=== PATIENT | female | born 1945 | race Caucasian/White ===

== ENCOUNTER 2016-11-14 08:05 | Day surgery (SDC) | payer MEDICARE, OTHER ==
[~2016-11-14 08:05] MED LIST: Lactated Ringers 1,000 ML IV SCH
[2016-11-14] MEDS ORDERED: Propofol 200 MG/20 ML SDV ONE (09:12)
[2016-11-14] MEDS ORDERED: fentaNYL 100 MCG/2 ML SDV ONE (09:12)
[2016-11-14 11:06] VITALS: BP 109/64
--- NOTE | 2016-11-14 16:03 | OR ---
PREOPERATIVE DIAGNOSIS: Screening colonoscopy. POSTOPERATIVE DIAGNOSIS: Normal colonoscopic exam. PROCEDURE PROPOSED: Total flexible colonoscopy. PROCEDURE DONE: Total flexible colonoscopy. INDICATION: This is a 70-year-old female who comes in for her second colonoscopic exam. She had one done 10 years ago. She denies any symptomatology, and she has a negative family history for colon cancer. TECHNIQUE: The patient was brought to the endoscopy suite, placed in left lower decubitus position. She was sedated per BUDGET ANALYST with propofol. The flexible video colonoscope was then passed transanally and under visualization advanced to the cecum. Examination revealed a normal ascending, transverse, descending, sigmoid, and rectal colon. There was no evidence of any polyps, diverticulosis, colitis, or any other abnormalities. The scope was then withdrawn. The patient tolerated the procedure well. IMPRESSION: Essentially normal colonoscopic exam. PLAN: The patient is reassured. I felt that she could wait 10 years before she needs a repeat exam, and that likely will be her last one. SCM: 11/14/2016 10:24:17 MODL: 11/14/2016 14:55:39 /[id number]
== END 2016-11-14 11:44 | disposition home or self-care (01) ==
LOC: VM.SDS 08:05
PROVIDERS: ATTEND Surgery
DX: Z12.11 Encounter for screening for malignant neoplasm of colon (principal)
CPT/HCPCS: G0121; J2704; J3010; J7120; 00810

== ENCOUNTER 2017-04-03 13:40 | Emergency (ER) | payer MEDICARE, OTHER ==
[2017-04-03] MEDS ORDERED: Lidocaine 1% with EPINEPHrine 1:100,000 20 ML MDV INFILT PRN (13:52)
[2017-04-03] MEDS ORDERED: Diphtheria,Pertussis(Acell),Tetanus Vaccine 0.5 ML Syringe IM ONE (13:56)
--- NOTE | 2017-04-03 14:40 | EDM.PDOC ---
ED HPI GENERAL MEDICAL PROBLEM - General Chief Complaint: Laceration Stated Complaint: CUT ON RIGHT LEG Time Seen by Provider: 04/03/17 13:51 Source of Information: Reports: Patient History Limitations: Reports: No Limitations - History of Present Illness INITIAL COMMENTS - FREE TEXT/NARRATIVE: Patient was helping her move a metal desk when it fell and hit her in the inside of her upper right thigh. The desk cut her and caused a bruise. She is on aspirin 81 mg daily. She thinks her last tetnas shot was more than 7 years ago. Onset: Today Onset Date: 04/03/17 Onset Time: 02:00 Location: Reports: Lower Extremity, Right Quality: Reports: Ache, Dull Severity: Mild Improves with: Reports: Cold Therapy Worsens with: Reports: Movement Context: Reports: Activity Associated Symptoms: Reports: No Other Symptoms Treatments COOK SHORT ORDER: Reports: Aspirin - Related Data Allergies Allergy/AdvReac Type Severity Reaction Status Date / Time codeine Allergy Abdominal Verified 04/03/17 13:51 Pain Penicillins Allergy Rash Verified 04/03/17 13:51 tramadol Allergy Itching Verified 04/03/17 13:51 Home Meds: Home Meds Aspirin [Halfprin] 81 mg PO BRK 01/27/15 [History] Calcium Carbonate/Vitamin D3 [Calcium 600 + D Tablet] 1 each PO DAILY 01/27/15 [ History] Cholecalciferol (Vitamin D3) [Vitamin D-3] 2,000 unit PO DAILY 01/27/15 [History ] Fish Oil/[place]-3 Fatty Acids [Fish Oil] 1 each PO DAILY 01/27/15 [History] Ibuprofen [Advil] 800 mg PO TID PRN 01/27/15 [History] Levothyroxine [Synthroid] 88 mcg PO ACBREAKFAST 01/27/15 [History] Multivitamin [Multi-Vitamin Daily] 1 each PO DAILY 01/27/15 [History] Vit A/Vit C/Vit E/Zinc/Copper [Preservision] 1 each PO DAILY 01/27/15 [History] Clindamycin HCl 4 tab PO ASDIRECTED 11/11/16 [History] Cranberry Ext/C/L. Sporogenes [Azo Cranberry] 1 tab PO DAILY 11/11/16 [History] Gluc HCl/Csa/Oleg Hy/Hyalur Ac [Glucosamine Chondroitin] 1 tab PO DAILY [History] Losartan [Cozaar] 25 mg PO DAILY 11/11/16 [History] Pramipexole Di-HCl [Mirapex] 0.125 mg PO BEDTIME 11/11/16 [History] Simvastatin [Zocor] 40 mg PO BEDTIME 11/11/16 [History] Past Medical History HEENT History: Reports: Cataract, Macular Degeneration, Other (See Below) Other HEENT History: TINNITUS Cardiovascular History: Reports: High Cholesterol, Hypertension Respiratory History: Reports: None Musculoskeletal History: Reports: Arthritis Other Musculoskeletal History: RLS Neurological History: Reports: None Psychiatric History: Reports: None Endocrine/Metabolic History: Reports: Hypothyroidism, Osteopenia Hematologic History: Reports: None Immunologic History: Reports: None Oncologic (Cancer) History: Reports: Other (See Below) Other Oncologic History: SKIN Dermatologic History: Reports: None - Past Surgical History Head Surgeries/Procedures: Reports: None HEENT Surgical History: Reports: Eye Surgery GI Surgical History: Reports: Colonoscopy Female Surgical History: Reports: Hysterectomy, Tubal Ligation Endocrine Surgical History: Reports: None Musculoskeletal Surgical History: Reports: Knee Replacement, Other (See Below) Social & Family History - Tobacco Use Smoking Status *Q: Unknown Ever Smoked - Recreational Drug Use Recreational Drug Use: No Drug Use in Last 12 Months: No ED ROS GENERAL - Review of Systems Review Of Systems: ROS reveals no pertinent complaints other than HPI. ED EXAM, SKIN/RASH Exam: See Below Exam Limited By: No Limitations General Appearance: Alert, WD/WN, No Apparent Distress Head: Atraumatic, Normocephalic Respiratory/Chest: No Respiratory Distress, Lungs Clear, Normal Breath Sounds, No Accessory Muscle Use, Chest Non-Tender Cardiovascular: Normal Peripheral Pulses, Regular Rate, Rhythm, No Edema, No Gallop, No JVD, No Murmur, No Rub Peripheral Pulses: 2+: Radial (L), Radial (R), Dorsalis Pedis (L), Dorsalis Pedis (R) GI/Abdominal: Normal Bowel Sounds, Soft, Non-Tender, No Organomegaly, No Distention, No Abnormal Bruit, No Mass Back Exam: Normal Inspection, Full Range of Motion, NT Extremities: Normal Inspection, Normal Range of Motion, Non-Tender, No Pedal Edema, Normal Capillary Refill Neurological: Alert, Oriented, CN II-XII Intact, Normal Cognition, Normal Gait, No Motor/Sensory Deficits Psychiatric: Normal Affect, Normal Mood Skin: Warm, Dry, No Rash, Ecchymosis, Wound/Incision (3cm by 4cm V shaped laceration with the vertex pointed toward the patient's groin) Lymphatic: No Adenopathy ED SKIN PROCEDURES - Laceration/Wound Repair Right Upper Medial Thigh Lac/Wound length In cm: 7 (3x4 cm inverted v shape) Appearance: Clean Distal NVT: Neuro & Vascular Intact Anesthetic Type: Local Local Anesthesia - Lidocaine (Xylocaine): 1% with EPI Local Anesthetic Volume: Other (12 mL) Skin Prep: Providone-Iodine (Betadine) Saline Irrigation (cc's): 80 Exploration/Debridement/Repair: Wound Explored, In a Bloodless Field, Explored to Base, No Foreign Material Found Closed with: Sutures Suture Size: 4-0 # of Sutures: 13 Course - Vital Signs Last Recorded V/S: Last Vital Signs Temp 36.6 C 04/03/17 13:40 Pulse 89 04/03/17 13:40 Resp 18 04/03/17 13:40 BP 181/109 H 04/03/17 13:40 Pulse Ox 97 04/03/17 13:40 - Orders/Labs/Meds Orders: Active Orders 24 hr Category Date Time Status Vaccines to be Administered [RC] PER UNIT ROUTINE Care 04/03/17 13:56 Ordered Lidocaine 1% w/EPINEPHrine [Xylocaine 1% with Med 04/03/17 13:52 Ordered EPINEPHrine 1:100,000] 20 ml INFILT ONETIME PRN Medication Orders Lidocaine/Epinephrine (Xylocaine 1% With Epinephrine 1:100,000) 20 ml INFILT ONETIME PRN PRN Reason: Bleeding Last Admin: 04/03/17 14:02 Dose: 20 ml Meds: Medications Generic Name Dose Route Start Last Admin Trade Name Freq PRN Reason Stop Dose Admin Lidocaine/Epinephrine 20 ml 04/03/17 13:52 04/03/17 14:02 Xylocaine 1% With Epinephrine 1:100,000 INFILT 20 ml ONETIME PRN Administration Bleeding Discontinued Medications Generic Name Dose Route Start Last Admin Trade Name Freq PRN Reason Stop Dose Admin Diphtheria/Tetanus/Acell Pertussis 0.5 ml 04/03/17 13:56 Adacel IM 04/03/17 13:57 .ONCE ONE Departure - Departure Time of Disposition: 02:50 Disposition: Home, Self-Care 01 Condition: Good Clinical Impression: Laceration of right thigh without foreign body Qualifiers: Encounter type: initial encounter Qualified Code(s): S71.111A - Laceration without foreign body, right thigh, initial encounter - Discharge Information Instructions: Laceration Care, Adult, [id number] Additional Instructions: sutures out in 14 days follow written laceration repair instructions - My Orders Last 24 Hours: My Active Orders 04/03/17 13:52 Lidocaine 1% w/EPINEPHrine [Xylocaine 1% with EPINEPHrine 1:100,000] 20 ml INFILT ONETIME PRN 04/03/17 13:56 Vaccines to be Administered [RC] PER UNIT ROUTINE - Assessment/Plan Last 24 Hours: My Active Orders 04/03/17 13:52 Lidocaine 1% w/EPINEPHrine [Xylocaine 1% with EPINEPHrine 1:100,000] 20 ml INFILT ONETIME PRN 04/03/17 13:56 Vaccines to be Administered [RC] PER UNIT ROUTINE Assessment:: Laceration right thigh Plan: Sutures out in 14 days. Keep wound clean and dry for the next 48 hours. You may then wash it lightly in the shower with soap and water. Take antibiotics until they are gone. Follow up for any sign of infection as listed in the discharge instructions.
[2017-04-03 15:07] VITALS: BP 128/77
== END 2017-04-03 14:56 | disposition home or self-care (01) ==
LOC: VM.ED 13:40
DX: S71.111A Laceration without foreign body, right thigh, initial encounter (principal); I10 Essential (primary) hypertension; E03.9 Hypothyroidism, unspecified; M19.90 Unspecified osteoarthritis, unspecified site; E78.00 Pure hypercholesterolemia, unspecified; Z88.5 Allergy status to narcotic agent; Z88.0 Allergy status to penicillin; Z88.6 Allergy status to analgesic agent; Z79.82 Long term (current) use of aspirin; Z79.899 Other long term (current) drug therapy; Z90.710 Acquired absence of both cervix and uterus; Z23 Encounter for immunization; W18.31XA Fall on same level due to stepping on an object, initial encounter
CPT/HCPCS: 12002; 12013; 90715; 99283; 99283-GF-25

== ENCOUNTER 2020-01-31 14:19 | Emergency (ER) | payer MEDICARE, OTHER ==
[2020-01-31] MEDS ORDERED: HYDROmorphone 1 MG/ML Syringe SUBCUT ONE (14:33)
[2020-01-31 14:34] VITALS: BP 155/71; PULSE 74
--- NOTE | 2020-01-31 15:06 | EDM.PDOC ---
ED HPI GENERAL MEDICAL PROBLEM - General Chief Complaint: Upper Extremity Injury/Pain Stated Complaint: RIGHT UPPER ARM INJURY Time Seen by Provider: 01/31/20 14:25 Source of Information: Reports: Patient History Limitations: Reports: No Limitations - History of Present Illness INITIAL COMMENTS - FREE TEXT/NARRATIVE: Pt. was sent to ER from clinic. Pt. states that she fell on sidewalk while walking downtown. Pt. states that she tripped. Denies striking her head. No LOC. Denies any neck pain. Pt. states that she is having pain in her R upper arm. No discomfort to the shoulder or elbow. ROM is within normal limits. Denies any injury elsewhere. No chest pain, palpitations, shortness of breath, or lightheadedness prior to or after the fall. Onset: Today Onset Date: 01/31/20 Location: Reports: Upper Extremity, Right Quality: Reports: Sharp, Throbbing Improves with: Reports: Rest Worsens with: Reports: Movement Right Upper Arm Pain Score (Numeric/FACES): 8 - Related Data Allergies Allergy/AdvReac Type Severity Reaction Status Date / Time codeine Allergy Abdominal Verified 01/31/20 14:36 Pain Penicillins Allergy Rash Verified 01/31/20 14:36 tramadol Allergy Itching Verified 01/31/20 14:36 Home Meds: Home Meds Aspirin [Halfprin] 81 mg PO BRK 01/27/15 [History] Calcium Carbonate/Vitamin D3 [Calcium 600 + D Tablet] 1 each PO DAILY 01/27/15 [History] Cholecalciferol (Vitamin D3) [Vitamin D-3] 2,000 unit PO DAILY 01/27/15 [History] Ibuprofen [Advil] 800 mg PO TID PRN 01/27/15 [History] Levothyroxine [Synthroid] 88 mcg PO ACBREAKFAST 01/27/15 [History] Vit A/Vit C/Vit E/Zinc/Copper [Preservision] 1 each PO DAILY 01/27/15 [History] Cranberry Ext/C/L. Sporogenes [Azo Cranberry] 1 tab PO DAILY 11/11/16 [History] Glucosam/Chond/Collagen/Hyalur [Glucosamine Chondroitin] 1 tab PO DAILY 11/11/16 [History] Losartan [Cozaar] 25 mg PO DAILY 11/11/16 [History] Simvastatin [Zocor] 40 mg PO BEDTIME 11/11/16 [History] Past Medical History HEENT History: Reports: Cataract, Macular Degeneration, Other (See Below) Other HEENT History: TINNITUS Cardiovascular History: Reports: High Cholesterol, Hypertension Respiratory History: Reports: None Musculoskeletal History: Reports: Arthritis Other Musculoskeletal History: RLS Neurological History: Reports: None Psychiatric History: Reports: None Endocrine/Metabolic History: Reports: Hypothyroidism, Osteopenia Hematologic History: Reports: None Immunologic History: Reports: None Oncologic (Cancer) History: Reports: Other (See Below) Other Oncologic History: SKIN Dermatologic History: Reports: None - Past Surgical History Head Surgeries/Procedures: Reports: None HEENT Surgical History: Reports: Eye Surgery GI Surgical History: Reports: Colonoscopy Female Surgical History: Reports: Hysterectomy, Tubal Ligation Endocrine Surgical History: Reports: None Musculoskeletal Surgical History: Reports: Knee Replacement Social & Family History - Tobacco Use Smoking Status *Q: Never Smoker Review of Systems - Review of Systems Review Of Systems: Comprehensive ROS is negative, except as noted in HPI. Musculoskeletal: Reports: Arm Pain ED EXAM, GENERAL - Physical Exam Exam: See Below Exam Limited By: No Limitations General Appearance: Alert, WD/WN, No Apparent Distress Extremities: Other (Tenderness to mid upper arm. CMS intact. No crepitus. No deformity. ROM slightly decreased in shoulder due to pain, but she is able to move the shoulder.) Course - Vital Signs Last Recorded V/S: Last Vital Signs Temp 37.3 C 01/31/20 14:25 Pulse 74 01/31/20 14:25 Resp 18 01/31/20 14:25 BP 155/71 H 01/31/20 14:25 Pulse Ox 97 01/31/20 14:25 - Orders/Labs/Meds Orders: Active Orders 24 hr Category Date Time Status Humerus Rt [CR] Stat Exams 01/31/20 14:37 Ordered Meds: Medications Discontinued Medications Generic Name Dose Route Start Last Admin Trade Name Freq PRN Reason Stop Dose Admin Hydromorphone HCl 0.5 mg 01/31/20 14:33 01/31/20 14:43 Dilaudid SUBCUT 01/31/20 14:34 0.5 mg ONETIME ONE Administration Departure - Departure Time of Disposition: 16:00 Disposition: Home, Self-Care 01 Clinical Impression: Contusion of arm, right - Discharge Information Forms: ED Department Discharge Sepsis Event Note (ED) - Evaluation Sepsis Screening Result: No Definite Risk - Focused Exam Vital Signs: Vital Signs Temp Pulse Resp BP Pulse Ox 01/31/20 14:25 37.3 C 74 18 155/71 H 97 - Problem List Review Problem List Initiated/Reviewed/Updated: Yes - My Orders Last 24 Hours: My Active Orders 01/31/20 14:37 Humerus Rt [CR] Stat - Assessment/Plan Last 24 Hours: My Active Orders 01/31/20 14:37 Humerus Rt [CR] Stat Plan: Pt. was discharged. No fracture noted on radiographs. Pt. was advised to ice the upper arm for 10-15 min every 1-2 hours. Tylenol and ibuprofen as needed for discomfort. Follow-up in clinic in 7-10 days if not gradually improving.
--- NOTE | 2020-01-31 15:52 | CR ---
[id number] RAD/RAD Humerus Right 2V EXAM: RAD Humerus Right 2V CLINICAL DATA: TRAUMA COMPARISON: NO PREVIOUS SIMILAR EXAM IS AVAILABLE. FINDINGS: No fracture or dislocation is seen. There is no radiopaque foreign body in the soft tissues. There is no air in the soft tissues. There is no cortical thickening or periosteal reaction either. IMPRESSION: NEGATIVE PLAIN FILM EXAM. Anupam Mccarthy MD 01/31/20 0648 Thank you for allowing us to participate in the care of your patient.
== END 2020-01-31 16:01 | disposition home or self-care (01) ==
LOC: VM.ED 14:19
DX: S40.021A Contusion of right upper arm, initial encounter (principal); E78.00 Pure hypercholesterolemia, unspecified; I10 Essential (primary) hypertension; M19.90 Unspecified osteoarthritis, unspecified site; E03.9 Hypothyroidism, unspecified; Z79.82 Long term (current) use of aspirin; Z79.899 Other long term (current) drug therapy; W01.0XXA Fall on same level from slipping, tripping and stumbling without subsequent striking against object, initial encounter; Z88.5 Allergy status to narcotic agent; Z88.0 Allergy status to penicillin
CPT/HCPCS: 73060-RT; 96372; 99283-25; 99283-GF; J1170

== ENCOUNTER 2020-08-04 11:13 | Emergency (ER) | payer MEDICARE, OTHER ==
[2020-08-04 11:20] VITALS: BP 150/86; PULSE 67
--- NOTE | 2020-08-04 16:36 | EDM.PDOC ---
ED HPI GENERAL MEDICAL PROBLEM - General Chief Complaint: Genitourinary Problem Time Seen by Provider: 08/04/20 11:20 Source of Information: Reports: Patient, RN History Limitations: Reports: No Limitations - History of Present Illness INITIAL COMMENTS - FREE TEXT/NARRATIVE: Pt. presents to ER with complaints of urinary frequency and dysuria since yesterday. Denies any fever or chills. No flank pain. No nausea, vomiting, or diarrhea. Pt. denies any chest pain or shortness of breath. She states that she would frequently get UTIs in her youth, but states that she hasn't had a UTI in about a year. Onset Date: 08/03/20 Location: Reports: Pelvis Quality: Reports: Burning Associated Symptoms: Denies: Confusion, Chest Pain, Cough, cough w sputum, Diaphoresis, Fever/Chills, Headaches, Loss of Appetite, Malaise, Nausea/Vomiting, Rash, Seizure, Shortness of Breath, Syncope, Weakness Perineal Area Pain Score (Numeric/FACES): 1 - Related Data Allergies Allergy/AdvReac Type Severity Reaction Status Date / Time codeine Allergy Abdominal Verified 08/04/20 11:22 Pain Penicillins Allergy Rash Verified 08/04/20 11:22 tramadol Allergy Itching Verified 08/04/20 11:22 Home Meds: Home Meds Aspirin [Halfprin] 81 mg PO BRK 01/27/15 [History] Calcium Carbonate/Vitamin D3 [Calcium 600 + D Tablet] 1 each PO DAILY 01/27/15 [History] Cholecalciferol (Vitamin D3) [Vitamin D-3] 2,000 unit PO DAILY 01/27/15 [History] Ibuprofen [Advil] 800 mg PO TID PRN 01/27/15 [History] Levothyroxine [Synthroid] 88 mcg PO ACBREAKFAST 01/27/15 [History] Vit A/Vit C/Vit E/Zinc/Copper [Preservision] 1 each PO DAILY 01/27/15 [History] Cranberry Ext/C/L. Sporogenes [Azo Cranberry] 1 tab PO DAILY 11/11/16 [History] Glucosam/Chond/Collagen/Hyalur [Glucosamine Chondroitin] 1 tab PO DAILY 11/11/16 [History] Losartan [Cozaar] 25 mg PO DAILY 11/11/16 [History] Simvastatin [Zocor] 40 mg PO BEDTIME 11/11/16 [History] Past Medical History HEENT History: Reports: Cataract, Macular Degeneration, Other (See Below) Other HEENT History: TINNITUS Cardiovascular History: Reports: High Cholesterol, Hypertension Respiratory History: Reports: None Musculoskeletal History: Reports: Arthritis Other Musculoskeletal History: RLS Neurological History: Reports: None Psychiatric History: Reports: None Endocrine/Metabolic History: Reports: Hypothyroidism, Osteopenia Hematologic History: Reports: None Immunologic History: Reports: None Oncologic (Cancer) History: Reports: Other (See Below) Other Oncologic History: SKIN Dermatologic History: Reports: None - Past Surgical History Head Surgeries/Procedures: Reports: None HEENT Surgical History: Reports: Eye Surgery Cardiovascular Surgical History: Reports: None GI Surgical History: Reports: Colonoscopy Female Surgical History: Reports: Hysterectomy, Tubal Ligation Endocrine Surgical History: Reports: None Musculoskeletal Surgical History: Reports: Knee Replacement Other Musculoskeletal Surgeries/Procedures:: TRIGGER FINGER RELEASE Oncologic Surgical History: Reports: None Social & Family History - Tobacco Use Tobacco Use Status *Q: Unknown Ever Used Tobacco ED ROS GENERAL - Review of Systems Review Of Systems: See Below Constitutional: Reports: No Symptoms HEENT: Reports: No Symptoms Respiratory: Reports: No Symptoms Cardiovascular: Reports: No Symptoms Endocrine: Reports: No Symptoms GI/Abdominal: Reports: No Symptoms : Reports: Dysuria, Frequency Musculoskeletal: Reports: No Symptoms Skin: Reports: No Symptoms Neurological: Reports: No Symptoms Psychiatric: Reports: No Symptoms Hematologic/Lymphatic: Reports: No Symptoms Immunologic: Reports: No Symptoms ED EXAM, GENERAL - Physical Exam Exam: See Below Exam Limited By: No Limitations General Appearance: Alert, WD/WN, No Apparent Distress Neck: Normal Inspection Respiratory/Chest: No Respiratory Distress, Lungs Clear, Normal Breath Sounds, No Accessory Muscle Use, Chest Non-Tender Cardiovascular: Normal Peripheral Pulses, Regular Rate, Rhythm, No Edema, No JVD, No Murmur Peripheral Pulses: 4+: Radial (R) GI/Abdominal: Soft, Non-Tender, No Distention, No Mass (Female) Exam: Deferred Rectal (Female) Exam: Deferred Neurological: Alert, Oriented, CN II-XII Intact, Normal Cognition, Normal Gait, Normal Reflexes, No Motor/Sensory Deficits Course - Vital Signs Last Recorded V/S: Last Vital Signs Temp 36.4 C 08/04/20 11:20 Pulse 67 08/04/20 11:20 Resp 16 08/04/20 11:20 BP 150/86 H 08/04/20 11:20 Pulse Ox 98 08/04/20 11:20 - Orders/Labs/Meds Labs: Laboratory Tests 08/04/20 Range/Units 11:25 Urine Color Light yellow (YELLOW) Urine Appearance Slightly cloudy H (CLEAR) Urine pH 6.5 (5.0-8.0) Ur Specific [place] 1.010 Urine Protein Negative (NEGATIVE) mg/dL Urine Glucose (UA) Negative (NEGATIVE) mg/dL Urine Ketones Negative (NEGATIVE) mg/dL Urine Occult Blood Trace-lysed H (NEGATIVE) Urine Nitrite Negative (NEGATIVE) Urine Bilirubin Negative (NEGATIVE) Urine Urobilinogen 0.2 (0.2) EU/dL Ur Leukocyte Esterase Small H (NEGATIVE) Urine RBC 0-5 (NOT SEEN) /HPF Urine WBC 5-10 H (NOT SEEN) /HPF Ur Squamous Epith Cells Rare (NEGATIVE) /HPF Urine Bacteria Rare (NEGATIVE) /HPF Urine Mucus Rare H (NEGATIVE) /LPF Departure - Departure Time of Disposition: 12:00 Disposition: Home, Self-Care 01 Clinical Impression: UTI (urinary tract infection) - Discharge Information Instructions: Urinary Tract Infection, Adult, Sulfamethoxazole; Trimethoprim, SMX-TMP tablets Referrals: Emeli Paul PA-C [Primary Care Provider] - Forms: ED Department Discharge Additional Instructions: Bactrim DS 1 twice daily for 5 days Drink plenty of fluids Follow-up in clinic in 7-10 days, sooner if not gradually improving Sepsis Event Note (ED) - Evaluation Sepsis Screening Result: No Definite Risk - Focused Exam Vital Signs: Vital Signs Temp Pulse Resp BP Pulse Ox 08/04/20 11:20 36.4 C 67 16 150/86 H 98 - Problem List Review Problem List Initiated/Reviewed/Updated: Yes - Assessment/Plan Plan: Bactrim DS 1 twice daily for 5 days Drink plenty of fluids Follow-up in clinic in 7-10 days, sooner if not gradually improving
== END 2020-08-04 11:57 | disposition home or self-care (01) ==
LOC: VM.ED 11:13
DX: N39.0 Urinary tract infection, site not specified (principal); E78.00 Pure hypercholesterolemia, unspecified; I10 Essential (primary) hypertension; M19.90 Unspecified osteoarthritis, unspecified site; E03.9 Hypothyroidism, unspecified; Z79.899 Other long term (current) drug therapy; Z88.5 Allergy status to narcotic agent; Z88.0 Allergy status to penicillin
CPT/HCPCS: 81001; 99283; 99284

== ENCOUNTER 2020-11-04 17:45 | Emergency (ER) | payer MEDICARE, OTHER ==
[2020-11-04 18:07] VITALS: BP 164/95; PULSE 70
[2020-11-04] MEDS ORDERED: Sulfamethoxazole/Trimethoprim 800-160 MG Tab PO ONE (18:12)
[2020-11-04] MEDS ORDERED: Phenazopyridine 95 MG Tab PO STA (18:12)
--- NOTE | 2020-11-04 18:12 | EDM.PDOC ---
ED HPI GENERAL MEDICAL PROBLEM - General Chief Complaint: Genitourinary Problem Stated Complaint: BLATTER INFECTION Time Seen by Provider: 11/04/20 18:05 Source of Information: Reports: Patient History Limitations: Reports: No Limitations - History of Present Illness INITIAL COMMENTS - FREE TEXT/NARRATIVE: Emergency department with complaints of painful urination. Patient states that she does have a longstanding history of UTIs in the past and states that she believes that she may have 1 again today. Patient states that she developed urgency, hesitancy, frequency, and excessive burning. Patient also states that she does have pressure. She feels that sitting on the toilet is more beneficial for she constantly feels that she needs to go. She states that she could not make it through the night until tomorrow to see her primary care doctor. She normally gets about 2-3 a year. She has been prescribed Bactrim in the past that has helped however the 5-day course is not effective she normally needs to do the 10-day course. Patient denies any other concerns or complaints. She denies any new sexual partners or STD concerns today. Onset: Sudden Perineal Area Pain Score (Numeric/FACES): 3 - Related Data Allergies Allergy/AdvReac Type Severity Reaction Status Date / Time codeine Allergy Abdominal Verified 11/04/20 18:09 Pain Penicillins Allergy Rash Verified 11/04/20 18:09 tramadol Allergy Itching Verified 11/04/20 18:09 Home Meds: Home Meds Aspirin [Halfprin] 81 mg PO BRK 01/27/15 [History] Calcium Carbonate/Vitamin D3 [Calcium 600 + D Tablet] 1 each PO DAILY 01/27/15 [History] Cholecalciferol (Vitamin D3) [Vitamin D-3] 2,000 unit PO DAILY 01/27/15 [History] Ibuprofen [Advil] 800 mg PO TID PRN 01/27/15 [History] Levothyroxine [Synthroid] 88 mcg PO ACBREAKFAST 01/27/15 [History] Vit A/Vit C/Vit E/Zinc/Copper [Preservision] 1 each PO DAILY 01/27/15 [History] Cranberry Ext/C/L. Sporogenes [Azo Cranberry] 1 tab PO DAILY 11/11/16 [History] Glucosam/Chond/Collagen/Hyalur [Glucosamine Chondroitin] 1 tab PO DAILY 11/11/16 [History] Losartan [Cozaar] 25 mg PO DAILY 11/11/16 [History] Simvastatin [Zocor] 40 mg PO BEDTIME 11/11/16 [History] Phenazopyridine HCl [Pyridium] 100 mg PO TID #15 tablet 11/04/20 [Rx] Sulfamethoxazole/Trimethoprim [Bactrim Ds Tablet] 1 each PO BID 7 Days #21 tablet 11/04/20 [Rx] Past Medical History HEENT History: Reports: Cataract, Macular Degeneration, Other (See Below) Other HEENT History: TINNITUS Cardiovascular History: Reports: High Cholesterol, Hypertension Respiratory History: Reports: None Musculoskeletal History: Reports: Arthritis Other Musculoskeletal History: RLS Neurological History: Reports: None Psychiatric History: Reports: None Endocrine/Metabolic History: Reports: Hypothyroidism, Osteopenia Hematologic History: Reports: None Immunologic History: Reports: None Oncologic (Cancer) History: Reports: Other (See Below) Other Oncologic History: SKIN Dermatologic History: Reports: None - Past Surgical History Head Surgeries/Procedures: Reports: None HEENT Surgical History: Reports: Eye Surgery Cardiovascular Surgical History: Reports: None GI Surgical History: Reports: Colonoscopy Female Surgical History: Reports: Hysterectomy, Tubal Ligation Endocrine Surgical History: Reports: None Musculoskeletal Surgical History: Reports: Knee Replacement Other Musculoskeletal Surgeries/Procedures:: TRIGGER FINGER RELEASE Oncologic Surgical History: Reports: None ED ROS GENERAL - Review of Systems Review Of Systems: Comprehensive ROS is negative, except as noted in HPI. Constitutional: Reports: No Symptoms HEENT: Reports: No Symptoms Respiratory: Reports: No Symptoms Cardiovascular: Reports: No Symptoms Endocrine: Reports: No Symptoms GI/Abdominal: Reports: No Symptoms Musculoskeletal: Reports: No Symptoms Skin: Reports: No Symptoms Neurological: Reports: No Symptoms Psychiatric: Reports: No Symptoms Hematologic/Lymphatic: Reports: No Symptoms Immunologic: Reports: No Symptoms ED EXAM, GENERAL - Physical Exam Exam: See Below Exam Limited By: No Limitations General Appearance: Alert, WD/WN, No Apparent Distress Eye Exam: Bilateral Eye: EOMI, PERRL Head: Atraumatic, Normocephalic Neck: Normal Inspection, Supple Respiratory/Chest: No Respiratory Distress, No Accessory Muscle Use, Chest Non- Tender Cardiovascular: Normal Peripheral Pulses, Regular Rate, Rhythm, No Edema GI/Abdominal: Normal Bowel Sounds, Soft, Non-Tender Back Exam: Normal Inspection, Full Range of Motion Extremities: Normal Inspection, Normal Range of Motion, Non-Tender, Normal Capillary Refill Neurological: Alert, Oriented, CN II-XII Intact, Normal Cognition, Normal Gait Psychiatric: Normal Affect, Normal Mood Course - Vital Signs Last Recorded V/S: Last Vital Signs Temp 35.8 C L 11/04/20 17:50 Pulse 70 11/04/20 17:50 Resp 14 11/04/20 17:50 BP 164/95 H 11/04/20 17:50 Pulse Ox 97 11/04/20 17:50 - Orders/Labs/Meds Orders: Active Orders 24 hr Category Date Time Status UA RFX JONO AND CULT IF INDIC [URIN] Stat Lab 11/04/20 18:07 Received Labs: Laboratory Tests 11/04/20 Range/Units 18:07 Urine Color Yellow (YELLOW) Urine Appearance Slightly cloudy H (CLEAR) Urine pH 6.0 (5.0-8.0) Ur Specific [place] 1.010 Urine Protein Negative (NEGATIVE) mg/dL Urine Glucose (UA) Negative (NEGATIVE) mg/dL Urine Ketones Negative (NEGATIVE) mg/dL Urine Occult Blood Small H (NEGATIVE) Urine Nitrite Negative (NEGATIVE) Urine Bilirubin Negative (NEGATIVE) Urine Urobilinogen 0.2 (0.2) EU/dL Ur Leukocyte Esterase Small H (NEGATIVE) Meds: Medications Discontinued Medications Generic Name Dose Route Start Last Admin Trade Name Freq PRN Reason Stop Dose Admin Phenazopyridine HCl 95 mg 11/04/20 18:12 Phenazopyridine 95 Mg Tab PO 11/04/20 18:13 NOW STA Trimethoprim/Sulfamethoxazole 1 tab 11/04/20 18:12 Sulfamethoxazole/Trimethoprim 800-160 Mg Tab PO 11/04/20 18:13 ONETIME ONE Departure - Departure Time of Disposition: 18:30 Disposition: Home, Self-Care 01 Condition: Good Clinical Impression: UTI (urinary tract infection) Qualifiers: Urinary tract infection type: site unspecified Hematuria presence: with hematuria Qualified Code(s): N39.0 - Urinary tract infection, site not specified - Discharge Information *PRESCRIPTION DRUG MONITORING PROGRAM REVIEWED*: Not Applicable *COPY OF PRESCRIPTION DRUG MONITORING REPORT IN PATIENT JOSAFAT: Not Applicable Prescriptions: Sulfamethoxazole/Trimethoprim [Bactrim Ds Tablet] 1 each PO BID 7 Days #21 tablet Phenazopyridine HCl [Pyridium] 100 mg PO TID #15 tablet Instructions: Phenazopyridine tablets, Urinary Tract Infection, Adult, Sulfamethoxazole; Trimethoprim, [id number] tablets Forms: ED Department Discharge Additional Instructions: 1. rest 2. increase your water intake 3. Take all antibiotics as prescribed even if feeling better 4. Take a probiotic while on antibiotics to help promote healthy GI motility 5. Activity and diet as tolerated 6. Can use Ibuprofen and tylenol for any fever or discomfort 7. Follow up with your PCP or return if symptoms progress or worsen 8. Education provided to you regarding your illness, probiotics, antibiotic prescribed 9. Call with any questions or concerns Sepsis Event Note (ED) - Evaluation Sepsis Screening Result: No Definite Risk - Focused Exam Vital Signs: Vital Signs Temp Pulse Resp BP Pulse Ox 11/04/20 17:50 35.8 C L 70 14 164/95 H 97 - My Orders Last 24 Hours: My Active Orders 11/04/20 18:07 UA RFX JONO AND CULT IF INDIC [URIN] Stat - Assessment/Plan Last 24 Hours: My Active Orders 11/04/20 18:07 UA RFX JONO AND CULT IF INDIC [URIN] Stat Assessment:: 1. UTI 2. Frequency 3. Burning Plan: 1. UA/UC completed 2. Pyridium due to the significant bladder spasm 3. Bactrim DS given in ER 4. Script sent home with patient 5. Patient and nursing staff was updated regarding the plan of care 6. Education provided the patient regarding activity, diet, rest, [id number] medication modalities, and follow-up care was provided 7. Patient and family are agreeable to the above plan of care 8. All questions and concerns were addressed with the patient and family prior to discharge
== END 2020-11-04 18:54 | disposition home or self-care (01) ==
LOC: VM.ED 17:45
DX: N39.0 Urinary tract infection, site not specified (principal); R31.9 Hematuria, unspecified; I10 Essential (primary) hypertension; E78.00 Pure hypercholesterolemia, unspecified; E03.9 Hypothyroidism, unspecified; Z88.0 Allergy status to penicillin; Z88.5 Allergy status to narcotic agent; Z88.6 Allergy status to analgesic agent; Z79.82 Long term (current) use of aspirin; Z79.899 Other long term (current) drug therapy
CPT/HCPCS: 81001; 87086; 87088; 87186; 99283; 99284; A9270-GY